=== PATIENT | male | born 1995 | race Hispanic/Latino ===

== ENCOUNTER 2022-05-03 08:16 | Emergency (ER) | payer SELFPAY ==
--- NOTE | 2022-05-03 08:25 | ED.SKABFB ---
HPI - Skin/Abscess/Foreign Bdy General Chief complaint: Skin/Abscess/Foreign Body Stated complaint: hives all over Time Seen by Provider: 05/03/22 08:25 Source: patient Mode of arrival: ambulatory Limitations: no limitations History of Present Illness HPI narrative: Mr. Ramey is a 26-year-old male patient presenting to the clinic today with complaints of rash all over his body x3 to 4 days. He reports no new changes in his environment such as detergents, foods, medications, or been around any possible poison yasmani. He denies being in a swimming pools or hot tubs. He has raised itchy rash all over his body excluding his face or neck. No one else in his family has a rash. MD complaint: rash Related Data Allergies Allergy/AdvReac Type Severity Reaction Status Date / Time No Known Allergies Allergy Verified 05/03/22 08:32 Review of Systems Review of Systems: Pertinent positives per HPI. Patient denies any fever, chills, headache, visual changes, dizziness, cough, runny nose, sore throat, shortness of breath, chest pain, palpitations, nausea, vomiting, diarrhea, constipation, abdominal pain, or any urinary issues. PMFSH Comments At the time of my signature, I reviewed and agree with the nursing past medical, surgical, social, and family history. There is no relevant family history pertinent to the patient complaint. Exam Narrative: General: Well-developed, well nourished, in no apparent distress Head: Normocephalic, atraumatic. Cardio: Regular rate and rhythm, s1 and s2 normal, no murmur appreciated. Resp: Clear to auscultation bilaterally, no rhonchi, rales, wheezing or rubs. Integumentary: [place], warm, and dry, intact without lesion, raised red itchy urticaria like rash to the back, torso, chest, bilateral arms, legs, and thighs. Course Course Emergency Course: Portions of this record may have been created with voice recognition software. Level of Care: Express Care Visit Vital Signs Vital signs: Vital Signs Temperature 37.2 C 05/03/22 08:30 Pulse Rate 90 05/03/22 08:30 Respiratory Rate 18 05/03/22 08:30 Blood Pressure 141/78 H 05/03/22 08:30 Pulse Oximetry 100 05/03/22 08:30 Oxygen Delivery Room Air 05/03/22 08:30 Temperature 37.2 C 05/03/22 08:30 Pulse Rate 90 05/03/22 08:30 Respiratory Rate 18 05/03/22 08:30 Blood Pressure 141/78 H 05/03/22 08:30 Pulse Oximetry 100 05/03/22 08:30 Oxygen Delivery Room Air 05/03/22 08:30 Vital signs reviewed MDM - Skin/Abscess/Foreign Bdy MDM Narrative Medical decision making narrative: At the time of visit patient is resting comfortably on the exam table. He has a urticarial-like rash. Unknown allergy trigger. I will go ahead and treat but given him a injection of 10 mg of Decadron and prescribing a course of prednisone daily x5 days. Supportive measures were discussed with the patient and discharge instructions were given and agrees to the treatment plan. Differential Diagnosis Differential diagnosis: Likely viral exanthem, urticaria, allergic reaction to drug and contact dermatitis Discharge Plan Discharge Clinical Impression: Allergic urticaria Patient Disposition: Home, Self-Care Condition: Stable Instructions: Urticaria (ED) Additional Instructions: May take 25 to 50 mg of Benadryl every 6 hours as needed for itching/swelling Decadron 10 mg IM given in the clinic today Take prednisone 40 mg by mouth daily x5 days Take [id number] Pepcid 40 mg by mouth daily x7 days Avoid scratching Avoid allergy irritants Avoid hot showers Follow-up with your PCP in 3 to 5 days if symptoms persist or sooner if they worsen. Often times this can be due to an allergy to medication, detergent, soap, food, or sometimes it can be stress related. Prescriptions: New prednisone 20 mg tablet 40 mg PO DAILY 5 Days Qty: 10 0RF prednisone 20 mg tablet 40 mg PO DAILY 5 Days Qty: 10 0RF Follow
[2022-05-03 08:30] VITALS: BP 141/78; PULSE 90; RESP 18; TEMP 37.2; O2SAT 100
== END 2022-05-03 08:50 | disposition home or self-care (01) ==
PROVIDERS: Emergency Provider Nurse Practitioner Family
DX: L50.0 Allergic urticaria (principal)
CPT/HCPCS: 96372; 99213; G0463; J1100

== ENCOUNTER 2022-12-21 17:56 | Emergency (ER) | payer OTHER, SELFPAY ==
[2022-12-21 18:02] VITALS: BP 157/98; PULSE 97; RESP 16; TEMP 37.1; O2SAT 99
--- NOTE | 2022-12-21 18:02 | ED.EYEPROB ---
HPI - Eye Problem General Chief complaint: Eye Problems Stated complaint: Painful left eye Time Seen by Provider: 12/21/22 18:12 Source: patient and RN notes reviewed Mode of arrival: ambulatory Limitations: no limitations History of Present Illness HPI Narrative: 27-year-old male presents concern for left eye pain that started woke this morning. He reports the pain is burning in nature, tearing. Reports he feels like his eyes scratched. He denies vision changes, swelling around the eye. chief complaint: eye pain Related Data Allergies Allergy/AdvReac Type Severity Reaction Status Date / Time No Known Allergies Allergy Verified 12/21/22 18:14 Review of Systems Review of Systems: CONSTITUTIONAL: Denies malaise, chills, sweats, or fever. EYES: Denies visual changes. Reports left eye redness, irritation, watery discharge. ENT: Denies rhinorrhea, congestion, sinus pain, otalgia or sore throat. SKIN: Denies rash or itching. NEUROLOGIC: Denies numbness, weakness, or headache. PSYCHIATRIC: Denies anxiety or depression. All systems reviewed & are unremarkable except as noted in HPI and below PMFSH Comments At time of signature, agree with nursing past medical, surgical, social and family history. There is no relevant family history pertinent to the presenting complaint Exam Narrative: GENERAL: Well-appearing, well-nourished, and in no acute distress. HEAD: Normocephalic, atraumatic. EYES: PERRLA, right sclera clear, and EOMI. No nystagmus. Left sclera conjunctivae mildly injected with small corneal abrasion noted upon was lamp exam, see note. Upper and lower eyelid unremarkable, no periorbital edema noted ENT: Nares clear, turbinates pink, no rhinorrhea or epistaxis. Mucous membranes moist. TM pearly ortega with sharp light reflex bilaterally; no tragal tenderness. NECK: Supple. CHEST: No respiratory distress. Speaks in full sentences. HEART: Regular rate and rhythm. SKIN: Warm, dry, no visible rash. NEURO: Alert and oriented x3. PSYCH: Normal mood and affect Course Course Emergency Course: Patient is aware of diagnosis, understands and agrees to treatment plan. Anticipatory guidance given. Patient agrees to follow-up as directed and is aware of reasons to seek care at the emergency department. Portions of this record may have been created with voice recognition software Level of Care: Express Care Visit Vital Signs Vital signs: Reviewed. Procedures Other Procedure Procedure 1: Other Procedure: Tetracaine 1 gtt instilled in left eye, fluorescein stain applied. Corneal abrasion noted upon singer lamp exam at approximately 9 o'clock in relation to the pupil. Eye washed with NS. No foreign bodies or Juan sign noted. MDM - Eye Problem MDM Narrative Medical decision making narrative: Consideration of the following conditions may be warranted for the presenting problem, they are not final diagnoses: Bacterial conjunctivitis, allergic conjunctivitis, viral conjunctivitis, foreign body, blepharitis, chalazion, hordeolum, corneal abrasion, preseptal cellulitis, orbital cellulitis. No evidence of proptosis, ophthalmoplegia, vision loss, pain with eye movement. Exam findings show no acute concerns or changes; patient is non-toxic appearing and is in no distress. Patient is appropriate for outpatient treatment and follow-up. Critical Care Time Critical Care Time Critical Care Time: No Discharge Plan Discharge Clinical Impression: Corneal abrasion Patient Disposition: Home, Self-Care Condition: Stable Instructions: Corneal Abrasion (ED) Additional Instructions: Corneal abrasions will heal in 1-2 days. Keep your eye shut and wear sunglasses or stay in low light to avoid light sensitivity. Do not touch or rub your eye or use a fabric patch You may take Tylenol or ibuprofen for pain Follow-up with PCP or honey producer if condition is not improving in 2-3days. Go To the emergency room if yo
[2022-12-21 18:14] VITALS: BP 157/98; PULSE 97; RESP 16; TEMP 37.1; O2SAT 99
== END 2022-12-21 18:26 | disposition home or self-care (01) ==
PROVIDERS: Emergency Provider Nurse Practitioner
DX: S05.02XA Injury of conjunctiva and corneal abrasion without foreign body, left eye, initial encounter (principal); X58.XXXA Exposure to other specified factors, initial encounter; R01.1 Cardiac murmur, unspecified
CPT/HCPCS: 99213; A9270; G0463

== ENCOUNTER 2024-01-14 08:21 | Emergency (ER) | payer OTHER, SELFPAY ==
[2024-01-14 08:28] VITALS: BP 139/80; PULSE 104; RESP 20; TEMP 37.9; O2SAT 100
--- NOTE | 2024-01-14 08:35 | ED.URI ---
HPI - URI/Sore Throat General Chief Complaint: Upper Respiratory Infection Stated Complaint: fever/throat Time Seen by Provider: 01/14/24 08:36 Source: patient, RN notes reviewed and old records reviewed Mode of arrival: ambulatory Limitations: no limitations History of Present Illness HPI Narrative: 28 year old male presents to [facility] care with complaints of sore throat, headaches,fevers,cough for the past 5 days. Patient reports that he has been taking Mucous relief medication, DayQuil, NyQuil for his symptoms. Patient reports no known ill contacts. Patient reports no body aches, nausea or vomiting or any diarrhea or any body aches. MD elicited complaint: fever, cough, sore throat, rhinorrhea, nasal congestion, sinus pain and other (headaches) Onset (ago): day(s) (5) Pain scale (0-10): 3 Able to tolerate fluids by mouth: Yes Treatments prior to arrival: other (Mucous relief, DayQuil,NyQuil) Related Data Allergies Allergy/AdvReac Type Severity Reaction Status Date / Time No Known Allergies Allergy Verified 01/14/24 08:44 Review of Systems Review of Systems: CONSTITUTIONAL: Reports malaise, chills, sweats, or fever. EYES: Denies visual changes, redness, or discharge. ENT: Reports rhinorrhea, congestion, sinus pain,no otalgia and positive sore throat. CARDIOVASCULAR: Denies chest pain, palpitations, or edema. RESPIRATORY: Reports cough.? Denies dyspnea. GASTROINTESTINAL: Denies abdominal pain, nausea, vomiting, diarrhea SKIN: Denies rash or itching. MUSCULOSKELETAL: Denies myalgia. NEUROLOGIC: Positive headache. All systems reviewed & are unremarkable except as noted in HPI and below PMFSH Past Medical History Medical History Heart murmur Recurrent epistaxis Seasonal allergies Surgical History Surgical History H/O right wrist surgery (~2011) Family History Family History Mother Alcoholism Hypertension Depression Heart disease Sibling Alcoholism Depression Grandparent Alcoholism Social History Social History (Updated 01/14/24 @ 08:49 by Lucia L. 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 There is no relevant family history pertinent to the presenting complaint Exam Narrative: GENERAL: Well-appearing, well-nourished, obese and in no acute distress. HEAD: Normocephalic EYES: PERRLA, conjunctivae clear ENT: Nares clear, turbinates edematous and erythematous, clear discharge. Mucous membranes moist. TM pearly ortega with dull light reflex bilaterally; no tragal tenderness. Oropharynx erythematous without lesions. Tonsils not enlarged and without exudate, no drooling, no hoarseness, no trismus, uvula midline.post nasal drainage NECK: Supple. No lymphadenopathy CHEST: Clear to auscultation, breath sounds equal. No wheezing, rhonchi, rales, or stridor. No respiratory distress, speaks in full sentences.acute cough,SAO2 100% on room air HEART: Regula
== END 2024-01-14 09:00 | disposition home or self-care (01) ==
PROVIDERS: Emergency Provider Registered Nurse
DX: J06.9 Acute upper respiratory infection, unspecified (principal); R05.9 Cough, unspecified; Z20.822 Contact with and (suspected) exposure to COVID-19; F17.290 Nicotine dependence, other tobacco product, uncomplicated; F17.220 Nicotine dependence, chewing tobacco, uncomplicated; R01.1 Cardiac murmur, unspecified
CPT/HCPCS: 87081; 87426; 87804; 87880; 99213; G0463